=== PATIENT | male | born 1955 | race Hispanic/Latino ===

== ENCOUNTER 2017-06-23 11:06 | Inpatient (IN) | payer BC ==
[2017-06-23 12:25] LABS: #Eosinphils 0.2 thou/uL (0.0-0.7); #Lymphocytes 1.5 thou/uL (1.20-3.40); #Monocytes 0.6 thou/uL (0.11-0.59); #Neutrophils 4.8 thou/uL (1.40-6.50); %Basophils 0.4 % (0.0-1.0); %Eosinophils 3.1 % (0.0-10.0); %Lymphocytes 20.4 % (21.0-51.0); %Monocytes 8.4 % (0.0-10.0); %Neutrophils 67.7 % (42.0-75.0); Hemoglobin 14.7 g/dL (14.0-18.0); Mean Corpuscular HGB CONC 33.2 g/dL (32.0-36.0); Mean Corpuscular Hemoglobin 29.2 pg (27.0-31.0); Mean Corpuscular Volume 87.8 fl (80.0-94.0); Mean Platelet Volume 8.9 fL (7.4-10.4); Platelet Count 178 thou/uL (130-400); RBC Distribution Width 11.7 % (11.5-14.5); Red Blood Cell (RBC) Count 5.04 mill/uL (4.70-6.10); White Blood Cell (WBC) Count 7.1 thou/uL (4.8-10.8)
[2017-06-23 12:28] LABS: INR-International Normal Ratio 1.2
[2017-06-23 12:35] LABS: ALT (SGPT) 16 U/L (8-55); AST (SGOT) 14 U/L (5-34); Albumin 3.8 g/dL (3.5-5.0); Alkaline Phosphatase 54 U/L (40-150); Anion Gap 14 mmol/L (10-20); BUN (Urea Nitrogen) 15 mg/dL (8.4-25.7); Bilirubin, Total 0.6 mg/dL (0.2-1.2); Calc. Creatinine Clearance 0 mL/min (70-130); Calcium 8.5 mg/dL (7.8-10.44); Carbon Dioxide 20 mmol/L (22-29); Chloride 98 mmol/L (98-107); Estimated GFR-MDRD Greater than 90; Globulin 2.2 g/dL (2.4-3.5); Glucose 156 mg/dL (70-105); Potassium 3.2 mmol/L (3.5-5.1); Sodium 129 mmol/L (136-145)
[2017-06-23 12:39] LABS: CKMB 3.8 ng/mL (0-6.6); Troponin I 0.052 ng/mL (< 0.028)
[2017-06-23] MEDS ORDERED: Acetaminophen/Codeine 30-300mg Tablet PO PRN ×2 (12:43→22:09)
[2017-06-23] MEDS ORDERED: Zolpidem Tartrate 5 MG TAB PO PRN (12:43)
[2017-06-23] MEDS ORDERED: Nitroglycerin 0.4 MG TAB (25 Tab Bottle) SL PRN (12:43)
[2017-06-23] MEDS ORDERED: traMADol HCl 50 MG TAB PO PRN (12:43)
[2017-06-23] MEDS ORDERED: Milk Of Magnesia 30 ML UDCUP PO PRN (12:43)
[2017-06-23] MEDS ORDERED: Sodium Chloride 0.9% 1,000 ML IV SCH (12:45)
[2017-06-23] MEDS ORDERED: Aggrastat 12.5 MG/250 ML 250 ML IVPB SCH (12:45)
[2017-06-23 12:51] LABS: PTT Greater than 250.0 SEC (22.9-36.1)
[2017-06-23] MEDS ORDERED: Potassium Chloride 40 MEQ in Premix Bag 1 BAG IVPB SCH (13:00)
[2017-06-23] MEDS ORDERED: Amiodarone In Dextrose 200 ML IVPB SCH (13:00)
[2017-06-23] MEDS ORDERED: Potassium Chloride 20 MEQ TAB PO SCH ×2 (13:00→17:00)
[2017-06-23 13:15] VITALS: BMI 27.4
[2017-06-23 14:40] LABS: CKMB 12.1 ng/mL (0-6.6)
[2017-06-23 14:41] LABS: Troponin I 1.284 ng/mL (< 0.028)
--- NOTE | 2017-06-23 14:44 | HP ---
DATE OF SERVICE: 06/23/2017 CHIEF COMPLAINT: Chest pain, anterior MD. HISTORY OF PRESENT ILLNESS: Mr. Edward is a very pleasant 61-year-old gentleman who comes to the hospital with chest pain. He was at home taking a shower, came out of the shower. He is getting ready to go to a of his brother's friend and he developed sudden onset of chest tightness. He did not felt anything like this but he immediately called 911 and he was brought into the hospital immediately. En route, an EKG was done and that showed anterior ST elevations, so the STEMI pager w as activated and we were called emergently. He states that by the time I saw him in the ER, he had b een having pain for about 30 minutes at that point. He was taken emergently to catheterization lab w here he was found to have an occluded LAD at a bifurcation with a large diagonal. We wired the LAD. Balloon did open and restored flow. His pain got better, still not completely gone, but better. We then called Surgery as there was a possibility that we may need to vascularize him with open heart a s he had a complex lesion in the proximal LAD; however, he continued to occlude the artery, so we dec ided to go ahead and try to intervene with a stent. We then were able to place a stent across the la rge diagonal and we were able to balloon, open the ostium of the diagonal with decent results. His p ain was much better. During all this, he was monitored. He was in atrial fibrillation with rapid ve ntricular response. His blood pressure was high; however, when the pain was better controlled, his b lood pressure went down. His heart rate actually came down to the 90s-110s. He did well. He was st arted on Aggrastat as well given his continued thrombus formation. He also had distal embolization t o a diagonal, which was product with a balloon; however, the distal portion of this diagonal was stil l occluded towards the end of the procedure; it did not improve with adenosine. He was not having an y more pain towards the end. He just had a discomfort. He was transferred to the ICU. PAST MEDICAL HISTORY: None. SOCIAL HISTORY: He smokes. He states about 2-4 cigarettes a day and he has been trying to quit for a long time. No alcohol or drugs. FAMILY HISTORY: Noncontributory. MEDICATIONS: None per patient's report. ALLERGIES: PENICILLIN. REVIEW OF SYSTEMS: A 12-point review of system was done and is all negative unless stated in the his tory of present illness. PHYSICAL EXAMINATION: VITAL SIGNS: Temperature 97.2, pulse 118, respiratory rate 20, satting 93% on room air and blood pre ssure 124/77 on catheterization. GENERAL: Awake, alert and oriented x3, groaning and moaning while in pain, better now. He has calme d down. HEENT: Normocephalic and atraumatic. NECK: Supple. LUNGS: Clear. CARDIOVASCULAR: S1 and S2. No S3, S4. No murmurs or rubs. ABDOMEN: Soft. Positive bowel sounds. EXTREMITIES: No edema. SKIN: Warm and dry. LABORATORY WORK: Reviewed a sodium of 129, potassium 3.2, chloride of 98, carbon dioxide of 20, anio n gap of 14, BUN of 15, creatinine is 0.82, GFR greater than 90, glucose of 156, calcium of 8.5, tota l bilirubin 0.6. AST, ALT, and alkaline phosphatase are normal. CK-MB initially at 3.8, troponin 0. 052, albumin of 3.8, globulin 2.2. CBC with a white count 7.1, hemoglobin 14, hematocrit 44 and plat elet count 178. IMAGING DATA: EKG has reviewed anterior ST elevations. ASSESSMENT: 1. Acute anterior ST elevation myocardial infarction. 2. Atrial fibrillation and rapid ventricular response. 3. Hypertension. 4. Tobacco abuse. PLAN: 1. Admit to ICU. 2. Continue Aggrastat for more hour after intervention and then hold. We will plan on pulling the s bam about an hour after that as long as the ACT is also under 200 as well. 3. Dual antiplatelet therapy with Brilinta and aspirin for minimum of one year . Denies prophylaxis . 4. High dose statin 80 mg of Lipitor day. 5. PPI for stress ulcer prophylaxis. 6. FULL CODE. 7. Disposition: Pending clinical evolution.
--- NOTE | 2017-06-23 15:41 | RAD ---
SINGLE VIEW OF THE CHEST: Comparison: 07-03-05 History: Status post interventional cardiology. Stent placement. FINDINGS: Single view of the chest shows a normal sized cardiomediastinal silhouette. There is no evidence of c onsolidation, mass, or pleural effusion. The bones are unremarkable. IMPRESSION: No evidence of acute cardiopulmonary disease. POS: H
[2017-06-23] MEDS ORDERED: Morphine 2 MG/ML SYRINGE SLOW IVP PRN (15:45)
[2017-06-23] MEDS: Amiodarone HCl 450 MG, Admixture Fee 1 EACH in Dextrose 5% in Water 250 ML IVPB SCH ×3 (15:56)
[2017-06-23 19:37] LABS: Troponin I 3.801 ng/mL (< 0.028)
[2017-06-23] MEDS: TICAGRELOR 90 MG TABLET PO SCH (20:52)
[2017-06-23] MEDS: Atorvastatin Calcium 40 MG TAB PO SCH (20:52)
[2017-06-23] MEDS: Metoprolol Tartrate 25 MG TAB PO SCH (20:53)
[2017-06-24 05:41] LABS: #Eosinphils 0.1 thou/uL (0.0-0.7); #Lymphocytes 1.4 thou/uL (1.20-3.40); #Monocytes 0.9 thou/uL (0.11-0.59); #Neutrophils 7.1 thou/uL (1.40-6.50); %Basophils 0.5 % (0.0-1.0); %Eosinophils 1.3 % (0.0-10.0); %Lymphocytes 14.6 % (21.0-51.0); %Monocytes 9.1 % (0.0-10.0); %Neutrophils 74.5 % (42.0-75.0); Hemoglobin 14.9 g/dL (14.0-18.0); Mean Corpuscular HGB CONC 33.7 g/dL (32.0-36.0); Mean Corpuscular Hemoglobin 29.7 pg (27.0-31.0); Mean Platelet Volume 8.5 fL (7.4-10.4); Platelet Count 192 thou/uL (130-400); RBC Distribution Width 11.9 % (11.5-14.5); White Blood Cell (WBC) Count 9.5 thou/uL (4.8-10.8)
[2017-06-24 06:03] LABS: ALT (SGPT) 21 U/L (8-55); AST (SGOT) 48 U/L (5-34); Albumin 3.8 g/dL (3.5-5.0); Alkaline Phosphatase 55 U/L (40-150); Anion Gap 13 mmol/L (10-20); BUN (Urea Nitrogen) 11 mg/dL (8.4-25.7); Bilirubin, Total 0.6 mg/dL (0.2-1.2); Calc. Creatinine Clearance 118 mL/min (70-130); Calcium 8.9 mg/dL (7.8-10.44); Carbon Dioxide 20 mmol/L (22-29); Cardiac Risk 3.4 (Less than 4.5); Chloride 109 mmol/L (98-107); Cholesterol 198 mg/dl (< 200 Desired); Estimated GFR-MDRD Greater than 90; Globulin 2.3 g/dL (2.4-3.5); Glucose 106 mg/dL (70-105); HDL Cholesterol 58 mg/dL (>60 Neg Risk); LDL Cholesterol, Calculated 108 mg/dL; Potassium 4.2 mmol/L (3.5-5.1); Protein, Total 6.1 g/dL (6.0-8.3); Sodium 138 mmol/L (136-145); Triglycerides 162 mg/dL (Less than 150)
[2017-06-24 06:10] LABS: Free T4 (Free Thyroxine) 0.91 ng/dL (0.70-1.48); Thyroid Stimulating Hormone 3.2998 uIU/mL (0.35-4.94)
[2017-06-24] MEDS: Metoprolol Tartrate 25 MG TAB PO SCH ×2 (08:58→20:22)
[2017-06-24] MEDS ORDERED: FLU VACC QS2017-18 36 mo. & older 0.5 ML SYRINGE IM ONE (09:00)
[2017-06-24] MEDS ORDERED: Prevnar 13-Val Conj/PF 0.5 ML SYRINGE IM ONE (09:00)
[2017-06-24] MEDS: TICAGRELOR 90 MG TABLET PO SCH (09:06)
--- NOTE | 2017-06-24 14:58 | PDOC.CTH ---
Cardiology Progress Note - Objective Vital Signs Temp Pulse Pulse Pulse Resp BP BP 06/24/17 11:00 97.6 F 06/24/17 09:09 105 H 88 142/78 H 149/74 H 06/24/17 08:00 97.5 F L 80 18 06/24/17 07:00 97.5 F L 06/24/17 04:00 98.1 F Pulse Ox Pulse Ox Pulse Ox 06/24/17 11:00 06/24/17 09:09 99 100 06/24/17 08:00 98 06/24/17 07:00 06/24/17 04:00 06/23/17 06/24/17 06/25/17 06:59 06:59 06:59 Intake Total 1972.4 710 Output Total 3200 1020 Balance -1227.6 -310 - Physical Examination General/Neuro: alert & oriented x3, NAD Neck: no JVD present Lungs: CTA, unlabored respirations Heart: other: (Irreg) Abdomen: NT/ND Extremities: other: (no edema.) - Telemetry Telemetry Rhythm: Afib HR 90-130 - Labs Result Diagrams: 06/24/17 05:23 06/24/17 05:23 Troponin/CKMB CK-MB (CK-2) 35.0 ng/mL (0-6.6) H* 06/23/17 18:54 Troponin I 3.801 ng/mL (< 0.028) H* 06/23/17 18:54 - Assessment/Plan 1/. Acute naterior STEMI 2. S/P PCI to LAD JESSE 3. Afib RVR 4. TObacco use. PLAN: - Continue CRISTOPHER, will switch brilinta to Plavix. - Will start Eliquis for stroke prophylaxis - Will line up for DAVID Cardioversion tomorrow morning if he remains in afib. - Will restart amiodarone drip as his HR remains in the 130's.
[2017-06-24] MEDS ORDERED: Amiodarone In Dextrose 200 ML IVPB SCH (15:00)
[2017-06-24] MEDS: Amiodarone HCl 450 MG, Admixture Fee 1 EACH in Dextrose 5% in Water 250 ML IVPB SCH ×3 (16:47)
[2017-06-24] MEDS: Apixaban 5 MG TAB PO SCH (16:48)
[2017-06-24] MEDS: Atorvastatin Calcium 40 MG TAB PO SCH (20:22)
[2017-06-25 04:06] LABS: #Basophils 0.1 thou/uL (0.0-0.2); #Eosinphils 0.3 thou/uL (0.0-0.7); #Lymphocytes 1.6 thou/uL (1.20-3.40); #Monocytes 1.1 thou/uL (0.11-0.59); #Neutrophils 6.9 thou/uL (1.40-6.50); %Basophils 0.6 % (0.0-1.0); %Eosinophils 2.7 % (0.0-10.0); %Lymphocytes 16.1 % (21.0-51.0); %Monocytes 10.9 % (0.0-10.0); %Neutrophils 69.7 % (42.0-75.0); Hemoglobin 14.6 g/dL (14.0-18.0); Mean Corpuscular HGB CONC 33.1 g/dL (32.0-36.0); Mean Corpuscular Hemoglobin 29.1 pg (27.0-31.0); Mean Platelet Volume 8.5 fL (7.4-10.4); Platelet Count 170 thou/uL (130-400); RBC Distribution Width 11.9 % (11.5-14.5); White Blood Cell (WBC) Count 9.9 thou/uL (4.8-10.8)
[2017-06-25 04:28] LABS: ALT (SGPT) 20 U/L (8-55); AST (SGOT) 31 U/L (5-34); Albumin 3.9 g/dL (3.5-5.0); Alkaline Phosphatase 57 U/L (40-150); Anion Gap 13 mmol/L (10-20); BUN (Urea Nitrogen) 12 mg/dL (8.4-25.7); Bilirubin, Total 0.8 mg/dL (0.2-1.2); Calc. Creatinine Clearance 105 mL/min (70-130); Calcium 9.2 mg/dL (7.8-10.44); Carbon Dioxide 22 mmol/L (22-29); Chloride 105 mmol/L (98-107); Estimated GFR-MDRD 82; Globulin 2.4 g/dL (2.4-3.5); Glucose 110 mg/dL (70-105); Potassium 4.3 mmol/L (3.5-5.1); Protein, Total 6.3 g/dL (6.0-8.3); Sodium 136 mmol/L (136-145)
[2017-06-25] MEDS ORDERED: Diprivan 0 ML ONE (07:01)
[2017-06-25] MEDS ORDERED: Clopidogrel Bisulfate 75 MG TAB PO SCH (09:00)
[2017-06-25] MEDS: Metoprolol Tartrate 25 MG TAB PO SCH (09:36)
[2017-06-25] MEDS: Apixaban 5 MG TAB PO SCH ×2 (09:36→17:39)
[2017-06-25 16:30] VITALS: BP 137/70; TEMP 97.3
--- NOTE | 2017-06-25 18:25 | DIS ---
DATE OF ADMISSION: 06/23/2017 DATE OF DISCHARGE: 06/25/2017 DISCHARGING PHYSICIAN: Pacheco Coker M.D. PRIMARY DIAGNOSES: 1. Acute anterior ST elevation myocardial infarction. 2. Hypertension. 3. Tobacco abuse. 4. Atrial fibrillation. PROCEDURES PERFORMED: 1. Echocardiogram. 2. Left heart catheterization. 3. Percutaneous coronary intervention to the LAD with a drug-eluting stent. SUMMARY: Mr. Edward is a very pleasant 61-year-old gentleman who comes to the hospital for ev aluation of chest pain. He was diagnosed with acute anterior ST elevation myocardial infarction and taken emergently to the catheterization lab where he was found to have an occluded LAD which was wire d and successfully stented with a drug-eluting stent. We also stented side-branch diagonal through t he stent struts with good results. He tolerated the procedure well. He was pain free. He did come in atrial fibrillation with rapid ventricular response, most likely related to the UT. He was starte d on amiodarone drip and he eventually converted overnight. An echocardiogram that showed normal LV function, eventually was doing very well so he was discharged home in stable condition. DISCHARGE MEDICATIONS: Include, 1. Amiodarone 400 mg p.o. b.i.d. for 10 days and then down to 200 mg a day. 2. Eliquis 5 mg p.o. b.i.d. 3. Aspirin 81 daily. 4. Lipitor 80 mg at bedtime. 5. Plavix 75 mg a day. 6. Metoprolol 12.5 mg b.i.d. FOLLOWUP APPOINTMENTS: 1. With myself in 2 weeks. 2. Cardiac rehabilitation evaluation next week. Over 30 minutes were spent at bedside counseling for discharge.
[2017-06-25] MEDS ORDERED: Amiodarone 200 MG TAB PO SCH (21:00)
--- NOTE | 2017-06-25 23:34 | EKG ---
Test Reason : Blood Pressure : / mmHG Vent. Rate : 084 BPM Atrial Rate : 250 BPM P-R Int : 000 ms QRS Dur : 088 ms QT Int : 432 ms P-R-T Axes : 000 -22 -08 degrees QTc Int : 510 ms Atrial fibrillation T wave abnormality, consider anterolateral ischemia or digitalis effect Prolonged QT Abnormal ECG When compared with ECG of 23-JUN-2017 15:29, (Unconfirmed) Nonspecific T wave abnormality, worse in Inferior leads T wave inversion now evident in Anterolateral leads QT has lengthened Confirmed by Muna FREEDMAN ([id number]) on 06/25/2017 11:34:21 PM Referred By: SKINNY Confirmed By:Muna FREEDMAN
--- NOTE | 2017-06-26 22:19 | CON ---
DATE OF CONSULTATION: 06/23/2017 HISTORY OF PRESENT ILLNESS: This is a 61-year-old gentleman with a heavy smoking history, who was br ought to the emergency room by EMS after experiencing sudden onset of chest tightness. He had initia l ST segment elevations anteriorly. His onset of pain to being in the crime lab analyst when I contacted was probably about 1 hour. Initial consultation was to take the patient to the operating room for emerge ncy coronary bypass grafting. The patient had had a totally occluded LAD and had been recanalized wi th balloon angioplasty by Dr. Coker. Due to significant diagonal disease as well as some left PDA d isease, it was felt that surgical intervention would be more appropriate. Surgical crew was contacte d as well as Anesthesia and the room was being set up on the patient abruptly occluded his LAD again. At that time, it was felt that percutaneous intervention, although not able to treat all his diseas e would be more appropriate than the delay to revascularize him surgically. PAST MEDICAL HISTORY: Not able to be obtained. Total time in cardiac crime lab analyst spent dealing with this patient was 30 minutes.
== END 2017-06-25 17:55 | disposition home or self-care (01) | DRG 247 ==
LOC: ERS 11:06 → CCL 11:33 → CCU 13:17 → 2NO 06-24 22:16 → CCU 06-24 22:24 → 2NO 06-25 09:58
PROVIDERS: ADMIT Internal Medicine Cardiovascular Disease; ATTEND Internal Medicine Cardiovascular Disease
PROC: 027034Z Dilation of Coronary Artery, One Artery with Drug-eluting Intraluminal Device, Percutaneous Approach (ICD-10-PCS; principal; 2017-06-23)
PROC: 4A023N7 Measurement of Cardiac Sampling and Pressure, Left Heart, Percutaneous Approach (ICD-10-PCS; 2017-06-23)
PROC: B2111ZZ Fluoroscopy of Multiple Coronary Arteries using Low Osmolar Contrast (ICD-10-PCS; 2017-06-23)
PROC: B2151ZZ Fluoroscopy of Left Heart using Low Osmolar Contrast (ICD-10-PCS; 2017-06-23)
DX: I21.09 ST elevation (STEMI) myocardial infarction involving other coronary artery of anterior wall (principal); I48.91 Unspecified atrial fibrillation; I25.10 Atherosclerotic heart disease of native coronary artery without angina pectoris; I10 Essential (primary) hypertension; F17.210 Nicotine dependence, cigarettes, uncomplicated; Z88.0 Allergy status to penicillin
CPT/HCPCS: 36415; 71045; 80053; 80061; 82553; 83735; 83880; 84439; 84443; 84481; 84484; 85025; 85347; 85610; 85730; 86850; 86900; 86901; 90471; 90732; 92921; 92928; 93005; 93010; 93306; 93458; 93798; 96374; 99152; 99153; C1769; C1874; C9600; G0009; J0282; J2270; J2704; J7070